=== PATIENT | female | born 1940 | race Caucasian/White ===

== ENCOUNTER 2023-11-25 10:06 | Outpatient (OUT) | payer MEDICARE, SELFPAY ==
--- NOTE | 2023-11-25 10:00 | CA_ITS ---
Patient Name: NATALY SERNA MR#: [id number] : 1940 Exam Date: 11/25/2023 Ordering Doctor: KAJAL SAM CNP ECHOCARDIOGRAM REPORT PROCEDURE: CA ECHO DOPPLER COMPLETE INDICATIONS: Dyspnea on exertion, pacemaker COMPARISON: None. DESCRIPTION: COMPLETE ECHOCARDIOGRAM Real-time transthoracic echocardiography with 2D, M-mode, spectral and color flow Doppler performed. QUALITY: Technical quality was good. 60 , 117#, BSA 1.49 m2, BP 142/70 LEFT VENTRICLE: Normal chamber size. Borderline left ventricular hypertrophy. Normal systolic function. LV EF: Normal left ventricular ejection fraction, (>55%). DIASTOLIC: Normal diastolic function. ATRIAL SEPTUM: LEFT ATRIUM: Normal chamber size. RIGHT ATRIUM: Normal chamber size. RIGHT VENTRICLE: Normal chamber size. Normal systolic function. Pacer wire present. TRICUSPID VALVE: Normal mobility and thickness. No stenosis with mild regurgitation. No evidence of pulmonary hypertension. RVSP 28 mmHg MITRAL VALVE: Normal mobility and thickness. No evidence of mitral valve stenosis. There is no mitral annular calcification. Mild mitral regurgitation. AORTIC VALVE: Normal trileaflet appearance. Mildly calcified aortic valve. Normal leaflet mobility. No evidence of aortic valve stenosis. Mild aortic regurgitation. AORTIC ROOT: Normal diameter and appearance. Ascending aorta is normal in size. PULMONIC VALVE: Normal thickness and mobility. No stenosis. Trivial regurgitation. PERICARDIUM: No evidence of pericardial effusion. IVC: Not well visualized. PLEURA: CONCLUSION: 1. Normal ventricular size and systolic function. LVEF is 55 to 60%. 2. Normal diastolic function. 3. Mild mitral and aortic regurgitation. 4. Normal right-sided pressures. Adult Echocardiography Procedure Report Left Ventricle LVEDD (3.7 - 5.6 cm): 3.76 cm LVESD (2.2 - 4.0 cm): 2.69 cm LVIVS thickness (0.6 - 1.2 cm): 0.94 cm LVPW thickness (0.5 - 1.0 cm): 1.07 cm e': 0.07 m/s E - e': 7.22 LVOT Max Gradient: 1.85 mm[Hg] LVOT Area (cm2): 0.68 m/s Peak Velocity (LVOT): 0.68 m/s Mean Velocity (LVOT): 0.51 m/s LVOT Diameter 2.03 cm Left Atrium LA Volume Index (2D A2C): 22.44 ml/m2 Left Atrium Systolic Dimension: 2.86 cm Mitral Valve MV E to A Ratio: 0.63 Mitral Valve A-Wave Peak Velocity: 0.75 m/s Mitral Valve E-Wave Peak Velocity: 0.47 m/s Right Ventricle Aorta AO Root Diam: 3.28 cm Ascending Ao Diam: 2.59 cm Aortic Valve AoV Area (Peak Jona): 2.97 cm2, 2.97 cm2 AoV Area (VTI): 3.40 cm2, 3.40 cm2 Peak Velocity(Antegrade Flow): 0.74 m/s Peak Gradient(Antegrade Flow): 2.20 mm[Hg] Mean Velocity(Antegrade Flow): 0.48 m/s Mean Gradient(Antegrade Flow): 1.07 mm[Hg] Velocity Time Integral: 15.01 cm Tricuspid Valve Peak Velocity (Regurgitant Flow): 2.12 m/s, 2.50 m/s Pulmonic Valve Peak Gradient: 1.39 mm[Hg], 1.94 mm[Hg] Right Atrium Right Atrium Systolic Pressure: 24.23 ml, 24.23 ml Dictated by: Hebert Bailon M.D. on 11/25/2023 at 18:21 Approved by: Hebert Bailon M.D. on 11/25/2023 at 18:24
== END 2023-11-25 10:07 | disposition home or self-care (01) ==
LOC: CARD 10:07
PROVIDERS: PCP Family Medicine; Visit Provider Nurse Practitioner Family
DX: R06.01 Orthopnea (principal); R06.02 Shortness of breath
CPT/HCPCS: 93306